=== PATIENT | male | born 1985 | race Two or more races ===

== ENCOUNTER 2024-10-14 16:50 | Emergency (ER) | payer OTHER, SELFPAY ==
[2024-10-14 17:02] VITALS: BMI 32.3
[2024-10-14 17:03] VITALS: BP 156/89; PULSE 91; RESP 18; TEMP 36.7; O2SAT 99
--- NOTE | 2024-10-14 17:10 | XR_ITS ---
Examination: PA lateral chest 2 views TECHNIQUE: Upright PA lateral chest 2 views Exam date and time: October 14, 2024 at 1734 hours INDICATIONS: Chest pain today. FINDINGS: Normal heart size No pneumonia or pulmonary edema. The osseous structures are intact IMPRESSION: No active disease
--- NOTE | 2024-10-14 17:10 | EKG_ITS ---
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
--- NOTE | 2024-10-14 17:10 | PD.EDRME ---
Rapid Medical Screening Exam RME Arrival date/time: 10/14/24 16:50 39-year-old male presents to the emergency department today complaints of palpitations Chief Complaint: Chest Pain Time Seen by Provider: 10/14/24 16:58 Vital signs: Vital Signs Temperature 98.1 F 10/14/24 17:03 Pulse Rate 91 10/14/24 17:03 Respiratory Rate 18 10/14/24 17:03 Blood Pressure 156/89 H 10/14/24 17:03 Pulse Oximetry (%) 99 10/14/24 17:03 Oxygen Delivery Method Room Air 10/14/24 17:03
[2024-10-14 17:58] LABS: Basophils % (Auto) 0 % (0-2.5); Eosinophils # (Auto) 0.1 Thou/mm3 (0.0-0.5); Eosinophils % (Auto) 1 % (0-10); Hematocrit 45.4 % (41.0-53.0); Hemoglobin 15.8 g/dL (13.5-16.0); Immature Granulocytes % (Auto) 0 % (0-0); Immature Granulocytes Auto 0.02 Thou/mm3 (0.00-0.00); Lymphocytes % (Auto) 25 % (10-50); Mean Corpuscular HGB Conc 34.8 g/dl (31.0-37.0); Mean Corpuscular Hemoglobin 30.2 pg (25.0-35.0); Mean Corpuscular Volume 87 fL (80-100); Monocytes # (Auto) 0.8 Thou/mm3 (0.0-0.8); Monocytes % (Auto) 10 % (0-12); Neutrophils # (Auto) 5.1 Thou/mm3 (1.8-7.7); Neutrophils % (Auto) 64 % (37-80); Nucleated Red Blood Cell % 0 /100 WBC (0); Platelet Count 274 Thou/mm3 (140-440); RDW Standard Deviation 40.4 fL (35.1-43.9); Red Blood Count 5.23 Miln/mm3 (4.50-5.90); White Blood Count 7.9 Thou/mm3 (3.8-10.6)
[2024-10-14 18:19] LABS: Alanine Aminotransferase 43 U/L (10-49); Albumin, Serum 4.9 gm/dL (3.5-5.0); Albumin/Globulin Ratio 1.6 (1.2-2.2); Alkaline Phosphatase 84 U/L (46-116); Anion Gap 8 (7-16); Aspartate Amino Transferase 28 U/L (0-34); BUN/Creatinine Ratio 14 Ratio (12-20); Bilirubin,Total 0.9 mg/dL (0.3-1.2); Blood Urea Nitrogen 14 mg/dL (9-23); Calcium 9.9 mg/dL (8.3-10.6); Calcium (Corrected) 9.9 mg/dL (8.5-10.1); Carbon Dioxide 28.6 mMol/L (20.0-31.0); Chloride 102 mMol/L (98-107); Estimated Creatinine Clearance 115.2 mL/min (>60); Free T4 (Free Thyroxine) 1.57 ng/dL (0.89-1.76); Globulin 3.1 gm/dL (2.3-3.5); Glucose 115 mg/dL (74-106); Osmolality,Calculated 279 (275-295); Potassium 4.4 mMol/L (3.4-5.1); Sodium 139 mMol/L (136-145); Troponin I < 0.002 ng/mL (0.0-0.045); eGFR > 60 See Note
--- NOTE | 2024-10-14 19:29 | PC.NURSE ---
Pt informed triage nurse he would like to sign himself out, stating he will follow up with pcp with lab results. all risks and benefits reviewed with pt, up to and including . Pt verbally stated he understood. pt encouraged to return if all symptoms worsen or continue.
[2024-10-14 20:15] VITALS: BP 143/92; PULSE 94; RESP 18; O2SAT 99
--- NOTE | 2024-10-14 20:21 | EDNOTE_ITS ---
ED Chest Pain RME/HPI General Chief Complaint: Chest Pain Stated Complaint: I FEEL HEART PALPATATIONS ; DENIES PAIN Time Seen by Provider: 10/14/24 16:58 Arrival date/time: 10/14/24 16:50 39-year-old male with history of hypertension on losartan reports today with complaints of heart palpitations and headaches that began earlier today. Patient states he recently quit caffeine cold turkey and attributes that to the palpitations. He denies chest pain shortness of breath nausea or vomiting weakness fatigue dizziness blurred vision ringing in ears cough or congestion. Patient states that while sitting in the the emergency department symptoms have resolved. Limitations: no limitations RME / HPI RME / HPI narrative: 10/14/24 16:50 39-year-old male presents to the emergency department today complaints of pa lpitations Related Data Allergies Allergy/AdvReac Type Severity Reaction Status Date / Time NKA* Allergy Uncoded 10/14/24 16:51 Review of Systems Constitutional Constitutional: Denies chills, Denies fever(s) and Denies headache(s) ENT Ears, Nose, Mouth, and Throat: Denies dizziness and Denies headache(s) Cardiovascular Cardiovascular: Denies chest pain, Denies diaphoresis, Denies dyspnea and Reports irregular heart rhythm Respiratory Respiratory: Denies cough and Denies dyspnea Gastrointestinal Gastrointestinal: Denies nausea and Denies vomiting Musculoskeletal Musculoskeletal: Denies back pain and Denies myalgias Integumentary/Breasts Skin/Breast: Denies erythema and Denies rash Neurologic Neurologic: Denies dizziness and Denies headache(s) Psychiatric Psychiatric: Denies anxiety and Denies depression Hematologic/Lymphatic Hematologic/Lymphatic: Denies easy bleeding and Denies easy bruising Past Medical History Social History SMOKING STATUS: Never smoker ED Exam General Limitations: Present no limitations General appearance: Present alert and in no apparent distress Head Head exam: Present atraumatic Eye Eye exam: Present normal appearance, PERRL and EOMI ENT ENT exam: Present normal exam, normal oropharynx and mucous membranes moist Neck Neck exam: Present normal inspection, full ROM and trachea midline Chest Chest inspection: Present normal inspection and symmetric chest wall rise Respiratory Respiratory exam: Present normal lung sounds bilaterally Cardiovascular Cardiovascular exam: Present regular rate, normal rhythm and normal heart sounds Abdominal Exam Abdominal exam: Present soft and normal bowel sounds Extremities Exam Extremities exam: Present normal inspection and full ROM Back Exam Back exam: Present normal inspection and full ROM Neurological Exam Neurological exam: Present alert, oriented X3 and CN II-XII intact Psychiatric Psychiatric exam: Present normal affect and normal mood Skin Skin exam: Present warm, dry, intact and normal color Course Course Course Narrative: 39-year-old male with a history of hypertension reports with complaints of heart palpitations. EKG normal sinus rhythm no evidence of ischemia no STEMI noted chest x-ray is without infiltrates or opacities CBC and CMP unremarkable thyroid panel negative troponin also negative. Differential diagnosis includes anxiety versus viral syndrome versus caffeine withdrawal. Patient is currently stable with stable vital signsand asymptomatic. He will be discharged home advised to follow-up with his primary care provider in 24 to 48 hours he is also advised to return to the emergency department if symptoms should worsen. Patient verbalized understanding Quality Measures none Orders Category Date Time Status EKG (ED ONLY) *Do not use* NOW Care 10/14/24 17:10 Completed EKG (ED Only) Stat Exams 10/14/24 17:10 Ordered XR chest 2V Stat Exams 10/14/24 17:10 Completed CBC Stat Lab 10/14/24 17:42 Completed Comprehensive Metabolic Panel Stat Lab 10/14/24 17:42 Completed Free T4 (Free Thyroxine) Stat Lab 10/14/24 17:42 Completed TSH [Thyroid Stimulating Hormone] Stat Lab 10/14/24 17:42 Completed Troponin I Stat Lab 10/14/24 17:42 Completed Vital Signs Vital signs: Vital Signs Temperature 98.1 F 10/14/24 17:03 Pulse Rate 91 10/14/24 17:03 Respiratory Rate 18 10/14/24 17:03 Blood Pressure 156/89 H 10/14/24 17:03 Pulse Oximetry (%) 99 10/14/24 17:03 Oxygen Delivery Method Room Air 10/14/24 17:03 Procedures -ED EKG Interpretation #1: EKG Impression: Normal sinus rhythm, No acute ST-T changes and No ischemic changes Chest Pain Patient data External records reviewed:: None Clinical information provided by:: patient Social determinants that could affect healthcare access:: none Patient has the following chronic illnesses:: Hypertension How is presenting disease/condition affected by chronic disease/condition?: uneffected by Evaluation data The following diagnostics were reviewed and interpreted by me:: lab results, radiology exam(s) and EKG tracing(s) Lab and/or radiology exams considered but not ordered:: None Interpretation Summary: Negative for evidence of cardiac event Medications / Prescriptions Medications or Prescriptions considered but not ordered:: None Medication administrations:: None Consultations Consultation(s) initiated? (list below): No Diagnosis Most likely diagnosis given after review of the tests above:: Caffeine withdrawal Admission Indicated Admission indicated?: not indicated Admission Request Was there a request for admission?: No Disposition Plan Disposition Plan: Discharge Discharge Attestation Discharge Attestation: The patient and all family members were given an opportunity to ask questions and understood the discharge instructions. Discharge instructions specifically effects, indications for sooner follow up or return to the emergency department, and the expected course of current diagnosis. Patient condition: Stable Discharge Plan Plan Patient Disposition: HOME (Self Care) Prescriptions/Referrals Referrals: Quoc Cervantes MD [Primary Care Provider] - In 1 week Problem List Clinical Impression: Caffeine withdrawal, Palpitations with regular cardiac rhythm Patient/Caregiver Discharge Instructions Discharge Activity: activity as tolerated Education Materials: Understanding Heart Palpitations Additional Instructions: Continue to take your medication as directed follow-up with your primary care provider in 24 to 48 hours return to emergency department if symptoms should worsen Print Language: Setswana Stand Alone Forms: Michaela Award Info., Patient Portal Info Letter
== END 2024-10-14 19:30 | disposition home or self-care (01) ==
PROVIDERS: Nurse Practitioner Primary Care; Emergency Provider Emergency Medicine; PCP Family Medicine
DX: R00.2 Palpitations (principal)
CPT/HCPCS: 36415; 71046; 80053; 84439; 84443; 84484; 85025; 93005; 99283

== ENCOUNTER → 2024-10-14 | Outpatient (CLI) | payer OTHER, SELFPAY ==
[2024-10-14 18:57] LABS: Alanine Aminotransferase 46 U/L (10-49); Albumin, Serum 5.1 gm/dL (3.5-5.0); Albumin/Globulin Ratio 1.9 (1.2-2.2); Alkaline Phosphatase 84 U/L (46-116); Anion Gap 7 (7-16); Aspartate Amino Transferase 26 U/L (0-34); BUN/Creatinine Ratio 18 Ratio (12-20); Bilirubin,Total 1.5 mg/dL (0.3-1.2); Blood Urea Nitrogen 20 mg/dL (9-23); Carbon Dioxide 29.6 mMol/L (20.0-31.0); Chloride 101 mMol/L (98-107); Cholesterol 190 mg/dL (132-200); Creatinine (Component) 1.1 mg/dL (0.6-1.3); Free T4 (Free Thyroxine) 1.53 ng/dL (0.89-1.76); Globulin 2.7 gm/dL (2.3-3.5); Glucose 98 mg/dL (74-106); HDL Cholesterol 48 mg/dL (40-60); LDL Cholesterol,Calculated 127 mg/dL (0-130); Osmolality,Calculated 278 (275-295); Potassium 4.1 mMol/L (3.4-5.1); Sodium 138 mMol/L (136-145); Thyroid Stimulating Hormone 1.68 uIU/mL (0.55-4.78); Total Protein 7.8 gm/dL (5.7-8.2); Triglycerides 75 mg/dL (30-150); eGFR > 60 See Note
== END | disposition home or self-care (01) ==
PROVIDERS: PCP Family Medicine; Referring Provider Family Medicine; Visit Provider Family Medicine
DX: E78.1 Pure hyperglyceridemia (principal); E03.2 Hypothyroidism due to medicaments and other exogenous substances; Z13.1 Encounter for screening for diabetes mellitus
CPT/HCPCS: 36415; 80053; 80061; 84439; 84443

== ENCOUNTER → 2024-12-16 | Outpatient (CLI) | payer OTHER, SELFPAY ==
--- NOTE | 2024-12-16 10:35 | XR_ITS ---
Examination: Testicular sonography complete TECHNIQUE: Grayscale sonographic images testes, assessment arterial inflow venous outflow Doppler spectral analysis carful analysis Exam date and time: December 16, 2024 1040 hours INDICATIONS: Scrotal pain one month FINDINGS: Right testis 4.6 cm epididymis 1.2 cm Arterial flow to the testicle. No testicular mass Solid scrotal mass upper lateral scrotum 3.6 x 1.3 x 1.7 cm Left testis 4.7 cm epididymis 1.0 cm Arterial flow testicle. No testicular mass Mild bilateral hydroceles IMPRESSION: No testicular torsion or testicular mass Solid right scrotal mass 3.6 x 1.3 x 1.7 cm, differential would include hematoma, soft tissue scrotal tumor, clinical correlation advised
== END | disposition home or self-care (01) ==
PROVIDERS: PCP Family Medicine; Referring Provider Family Medicine; Visit Provider Family Medicine
DX: N50.89 Other specified disorders of the male genital organs (principal)
CPT/HCPCS: 76870